=== PATIENT | male | born 1960 | race Caucasian/White ===

== ENCOUNTER 2020-01-16 15:56 | Emergency (ER) | payer OTHER ==
[~2020-01-16] VITALS: Ht 165.1 cm; Wt 81.2 kg
[2020-01-16 16:04] VITALS: Ht 165.1 cm; Wt 81.2 kg
[2020-01-16 16:33] LABS: BASOPHIL % 0.9 % (0-2); PLATELET COUNT 197 x10^3mcL (130-400); RED CELL DISTRIBUTION WIDTH 13.6 % (11.5-14.5)
[2020-01-16 16:48] LABS: CALCIUM 8.9 mg/dL (8.5-10.1); CARBON DIOXIDE 24.4 mmol/L (21-32); CREATININE SERUM 1.5 mg/dL (0.7-1.3)
[2020-01-16 16:53] LABS: TOTAL PROTEIN, SERUM 8.6 g/dL (6.4-8.2)
[2020-01-16 17:30] VITALS: BP 112/64
== END 2020-01-16 17:30 | disposition home or self-care (01) ==
LOC: ED 15:56
PROVIDERS: Emergency Medicine
DX: R55 Syncope and collapse (principal); R42 Dizziness and giddiness; I10 Essential (primary) hypertension; E11.9 Type 2 diabetes mellitus without complications; E78.5 Hyperlipidemia, unspecified; R20.0 Anesthesia of skin
CPT/HCPCS: 36415; 82962; 83880